=== PATIENT | female | born 1985 | race Two or more races ===

== ENCOUNTER 2017-07-20 19:52 | Emergency (ER) | payer MEDICAID ==
[2017-07-20 19:57] VITALS: TEMP 98.2
--- NOTE | 2017-07-20 20:00 | EDPHY ---
H & P Stated Complaint: chest pain with anxiety starting 5 hours ago Time Seen by Provider: 07/20/17 20:00 HPI/ROS: CHIEF COMPLAINT: Anxious, chest pain HISTORY OF PRESENT ILLNESS: The patient presents to the ED with intermittent chest pain for the past 6 hr. The patient is under fair amount of stress and anxiety secondary to problems surrounding her current and children. The patient does not currently have custody of her children. She has felt particularly stressed around the holiday season. She denies any suicidal or homicidal ideation. The patient has had intermittent symptoms of chest pain and mild breathlessness today. She denies asymmetric calf pain or swelling. She denies history of PE or DVT. She denies any pleuritic chest pain. REVIEW OF SYSTEMS: A comprehensive 10 point review of systems is otherwise negative aside from elements mentioned in the history of present illness. Source: Patient Exam Limitations: No limitations - Personal History LMP (Females 10-55): 15-21 Days Ago Current Tetanus/Diphtheria Vaccine: Yes Current Tetanus Diphtheria and Acellular Pertussis (TDAP): Yes - Medical/Surgical History Hx Asthma: No Hx Chronic Respiratory Disease: No Hx Diabetes: No Hx Cardiac Disease: No Hx Renal Disease: No Hx Cirrhosis: No Hx Alcoholism: No Hx HIV/AIDS: No Hx Splenectomy or Spleen Trauma: No Other PMH: Nerve damage, ovarian cysts - Social History Smoking Status: Light smoker - Physical Exam Exam: General Appearance: Alert, anxious Eyes: Pupils equal and round no pallor or injection ENT, Mouth: Mucous membranes moist Respiratory: There are no retractions, lungs are clear to auscultation Cardiovascular: Tachycardic Gastrointestinal: Abdomen is soft and nontender, no masses, bowel sounds normal Neurological: A&O, normal motor function, normal sensory exam, normal cranial nerves Skin: Warm and dry, no rashes Musculoskeletal: Neck is supple nontender Extremities: symmetrical, full range of motion Constitutional: Initial Vital Signs Temperature (C) 36.8 C 07/20/17 19:55 Heart Rate 106 H 07/20/17 19:55 Respiratory Rate 24 H 07/20/17 19:55 Blood Pressure 132/85 H 07/20/17 19:55 O2 Sat (%) 100 07/20/17 19:55 O2 Delivery Mode Room Air Allergies/Adverse Reactions: No Known Allergies Allergy (Verified 08/15/14 17:52) Medical Decision Making - Diagnostics EKG Interpretation: EKG: Complete interpretation has been separately recorded in the [employer] archive. Summary impression: Sinus tachycardia, rate 106 ED Course/Re-evaluation: The patient presents to the ED acute chest pain. The patient does smoke and is on control pills. The patient's D-dimer test is negative which I feel adequately excludes pulmonary embolism. The patient's EKG demonstrates no evidence of arrhythmia despite 6 hr of symptoms her troponin is normal. She has no ischemia noted on her EKG. The patient is also noted to have a negative test, a normal CBC and no evidence of a metabolic abnormality. The patient did receive 1 mg of Ativan in the emergency department. I re-evaluated the patient at 9:00 p.m. and she is currently feeling much better. At this point time I do not feel that further workup is indicated. Differential Diagnosis: Differential diagnosis considered includes acute coronary syndrome, pulmonary embolism, anxiety reaction, dehydration, anemia, ectopic - Data Points Laboratory Results: Laboratory Results 07/20/17 20:05 07/20/17 20:05 07/20/17 07/20/17 07/20/17 20:05 20:05 20:05 WBC RBC Hgb Hct MCV MCH MCHC RDW Plt Count MPV Neut % (Auto) Lymph % (Auto) [place] % (Auto) Eos % (Auto) Baso % (Auto) Nucleat RBC Rel Count Absolute Neuts (auto) Absolute Lymphs (auto) Absolute Monos (auto) Absolute Eos (auto) Absolute Basos (auto) Absolute Nucleated RBC Immature Gran % Immature Gran # D-Dimer < 0.27 ug/mLFEU ug/mLFEU (0.00-0.50) Sodium 141 mEq/L mEq/L (134-144) Potassium 3.7 mEq/L mEq/L (3.5-5.2) Chloride 104 mEq/L mEq/L (97-110) Carbon Dioxide 24 mEq/l mEq/l (22-31) Anion Gap 13 mEq/L mEq/L (8-16) BUN 10 mg/dL mg/dL (7-23) Creatinine 0.8 mg/dL mg/dL (0.6-1.0) Estimated GFR > 60 Glucose 89 mg/dL mg/dL (70-100) Calcium 9.9 mg/dL mg/dL (8.5-10.4) Troponin I < 0.012 ng/mL ng/mL (0.000-0.034) Beta HCG, Qual NEGATIVE 07/20/17 20:05 WBC 9.18 10^3/uL 10^3/uL (3.80-9.50) RBC 5.05 10^6/uL 10^6/uL (4.18-5.33) Hgb 16.5 g/dL H g/dL (12.6-16.3) Hct 45.5 % % (38.0-47.0) MCV 90.1 fL fL (81.5-99.8) MCH 32.7 pg pg (27.9-34.1) MCHC 36.3 g/dL g/dL (32.4-36.7) RDW 12.6 % % (11.5-15.2) Plt Count 290 10^3/uL 10^3/uL (150-400) MPV 8.2 fL L fL (8.7-11.7) Neut % (Auto) 56.8 % % (39.3-74.2) Lymph % (Auto) 34.7 % % (15.0-45.0) [place] % (Auto) 6.1 % % (4.5-13.0) Eos % (Auto) 1.7 % % (0.6-7.6) Baso % (Auto) 0.5 % % (0.3-1.7) Nucleat RBC Rel Count 0.0 % % (0.0-0.2) Absolute Neuts (auto) 5.20 10^3/uL 10^3/uL (1.70-6.50) Absolute Lymphs (auto) 3.19 10^3/uL H 10^3/uL (1.00-3.00) Absolute Monos (auto) 0.56 10^3/uL 10^3/uL (0.30-0.80) Absolute Eos (auto) 0.16 10^3/uL 10^3/uL (0.03-0.40) Absolute Basos (auto) 0.05 10^3/uL 10^3/uL (0.02-0.10) Absolute Nucleated RBC 0.00 10^3/uL 10^3/uL (0-0.01) Immature Gran % 0.2 % % (0.0-1.1) Immature Gran # 0.02 10^3/uL 10^3/uL (0.00-0.10) D-Dimer Sodium Potassium Chloride Carbon Dioxide Anion Gap BUN Creatinine Estimated GFR Glucose Calcium Troponin I Beta HCG, Qual Medications Given: Discontinued Medications Lorazepam (Ativan Injection) 1 mg IVP EDNOW ONE Stop: 07/20/17 20:14 Last Admin: 07/20/17 20:21 Dose: 1 mg Departure - Departure Disposition: Home, Routine, Self-Care Clinical Impression: Chest pain Condition: Good Instructions: Chest Pain (ED) Additional Instructions: 1. Please return to the emergency department for markedly worsening symptoms or other concerns. 2. Please schedule a follow-up appointment with your primary care provider. 3. All testing done in the emergency department today demonstrates no evidence of an obvious cardiac or pulmonary condition. I do recommend returning to the emergency department for markedly worsening symptoms or other concerns.
--- NOTE | 2017-07-20 20:04 | CPEKG ---
Heart Rate: 106 RR Interval: 566 P-R Interval: 134 QRSD Interval: 84 QT Interval: 348 QTC Interval: 463 P [place]: 43 QRS [place]: 56 T Wave [place]: 19 EKG Severity - OTHERWISE NORMAL ECG - EKG Impression: SINUS TACHYCARDIA Electronically Signed By: Serafin Huddleston 20-Jul-2017 20:17:38
[2017-07-20] MEDS ORDERED: LORazepam 2 MG/ML INJ IVP ONE (20:13)
[2017-07-20 20:22] LABS: PLATELET COUNT 290 10^3/uL (150-400)
[2017-07-20] MEDS ORDERED: LORAZEPAM 1 MG PREPACK#4 BTL TAKEHOME ONE (20:56)
[2017-07-20 21:37] VITALS: BP 123/87; PULSE 100; RESP 20; O2SAT 94
== END 2017-07-20 21:37 | disposition home or self-care (01) ==
DX: R07.9 Chest pain, unspecified (principal); F17.200 Nicotine dependence, unspecified, uncomplicated
CPT/HCPCS: 96374; J2060